=== PATIENT | male | born 1950 | race Caucasian/White ===

== ENCOUNTER 2020-04-24 12:25 | Outpatient (CLI) | payer MEDICARE, OTHER, SELFPAY ==
--- NOTE | ~2020-04-24 | CT_ITS ---
EXAMINATION: CTA chest PE protocol DATE: 04/24/2020 14:19 INDICATION: Chest pain on breathing. TECHNIQUE: Computed tomography angiography (CTA) of the chest was performed with 100 mL Omnipaque-350 intravenous contrast timed to evaluate the pulmonary arteries. Coronal maximum intensity projection 3D-reconstructions were created by the technologist. Automated exposure control and iterative reconst ruction technique were employed. The dose-length product was 489.64 mGy-cm. COMPARISON: None. FINDINGS: The lungs demonstrate mild atelectasis. There are airspace and groundglass opacities in bas ilar left lower lobe, consistent with infarct. There is a small left pleural effusion. The heart size is normal. No pericardial effusion. There are cysts in the liver measuring up to 9 mm. There are pul monary emboli in the lower lobes, right middle lobe, and left upper lobe including a saddle embolus i n distal left main pulmonary artery. There is mild thoracic spondylosis. IMPRESSION: 1. Bilateral acute pulmonary emboli. 2. Infarct in basilar left lung lower lobe. 3. Small left pleural effusion. Reviewed, dictated and finalized at location A.
--- NOTE | ~2020-04-24 | US_ITS ---
EXAMINATION:US venous doppler LE BI INDICATION:Chest pain TECHNIQUE: Multiple grayscale, color flow and Doppler images of the lower extremity deep venous syste ms were obtained and reviewed. COMPARISON:No prior studies for comparison. FINDINGS: There is deep venous thrombosis of the right femoral, popliteal, posterior tibial and peron eal veins. There is no evidence for deep venous thrombosis lower extremity veins. IMPRESSION: 1: Deep venous thrombosis of the right lower extremity. Reviewed, dictated and finalized at location A.
[2020-04-24 13:24] LABS: D Dimer 4.95 ug/mL (<0.48)
[2020-04-24 14:14] LABS: Estimated Glomerular Filt Rate 54
== END 2020-04-24 12:26 | disposition home or self-care (01) ==
PROVIDERS: PCP Internal Medicine; Visit Provider Internal Medicine
DX: R07.1 Chest pain on breathing (principal); I26.99 Other pulmonary embolism without acute cor pulmonale; J90 Pleural effusion, not elsewhere classified; I82.491 Acute embolism and thrombosis of other specified deep vein of right lower extremity
CPT/HCPCS: 36415; 71275; 85380; 93970; Q9967

== ENCOUNTER 2020-05-16 07:32 | Outpatient (CLI) | payer MEDICARE, OTHER, SELFPAY ==
--- NOTE | ~2020-05-16 | US_ITS ---
EXAMINATION: US venous doppler [facility] DATE: 05/16/2020 08:14 INDICATION: Acute right lower limb deep vein thrombosis. TECHNIQUE: Grayscale ultrasound images without and with compression and Doppler ultrasound images of the bilateral lower extremity veins were obtained. COMPARISON: Ultrasound 04/24/2020 FINDINGS: The visualized portions of right common femoral vein, profunda (deep) femoral vein, femoral vein, pop liteal vein, peroneal veins, posterior tibial veins, and greater saphenous vein outflow are patent. T here is thrombus in a right gastrocnemius vein. The visualized portions of left common femoral vein, profunda femoral vein, femoral vein, popliteal v ein, peroneal veins, posterior tibial veins, and greater saphenous vein outflow are patent. IMPRESSION: 1. Deep vein thrombosis involving a right gastrocnemius vein with interval improvement in distributi on. Reviewed, dictated and finalized at location A. IMPRESSION: 1. Deep vein thrombosis involving a right gastrocnemius vein with interval imp rovement in distribution.
--- NOTE | ~2020-05-16 | CT_ITS ---
EXAMINATION: CTA chest PE protocol DATE: 05/16/2020 09:56 INDICATION: History of pulmonary embolism and deep venous thrombosis TECHNIQUE: Computed tomography angiography (CTA) of the chest was performed with 100 mL Omnipaque-350 intravenous contrast timed to evaluate the pulmonary arteries. Coronal maximum intensity projection 3D-reconstructions were created by the technologist. The dose-length product (DLP) was 460.61 mGy-cm. Automated exposure control and iterative reconstruction technique were employed. COMPARISON: 04/24/2020 FINDINGS: The pulmonary arteries are well-opacified. There is near complete resolution of the previou sly identified pulmonary emboli. A tiny peripheral residual pulmonary embolism is seen in the left lo wer lobe, consistent with a resolving embolus. No new pulmonary emboli are identified. There is a sta ble 4 mm nodule in the right lower lobe. There is a 2.5 x 1.5 cm pleural-based nodule in the left low er lobe, new since the comparison examination and likely representing rounded atelectasis versus sequ julius of prior pulmonary infarct. There is no pleural effusion or pneumothorax. No pathologically enlar ged thoracic lymph nodes are identified. The heart size is normal. There is mild thoracic spondylosis . Liver cysts measure up to 9 mm. IMPRESSION: 1. Near complete resolution of previously described pulmonary emboli with a small persistent resolvin g embolus in the right lower lobe. 2. Pleural-based nodule of the left lower lobe, likely rounded atelectasis versus sequela of prior in farct. Reviewed, dictated and finalized at location A. IMPRESSION: 1. Near complete resolution of previously described pulmonary emboli with a sma ll persistent resolving embolus in the right lower lobe. 2. Pleural-based nodule of the left lower lobe, likely rounded atelectasis vers us sequela of prior infarct.
== END 2020-05-16 07:33 | disposition home or self-care (01) ==
PROVIDERS: PCP Internal Medicine; Visit Provider Internal Medicine
DX: R91.8 Other nonspecific abnormal finding of lung field (principal); I82.461 Acute embolism and thrombosis of right calf muscular vein
CPT/HCPCS: 71275; 93970; Q9967

== ENCOUNTER 2020-06-22 12:52 | Outpatient (CLI) | payer MEDICARE, OTHER, SELFPAY ==
--- NOTE | ~2020-06-22 | CT_ITS ---
EXAMINATION: CT abdomen pelvis wo con DATE: 06/22/2020 14:00 INDICATION: Abdominal pain TECHNIQUE: Computed tomography (CT) of the abdomen and pelvis was performed without intravenous contr ast. The dose-length product (DLP) was 756.21 mGy-cm. Automated exposure control and iterative recons truction technique were employed. COMPARISON: 05/16/2020 FINDINGS: A pleural-based nodule of the left lower lobe persists but is decreased in size, consistent with resolving atelectasis or pulmonary infarct. Hypoattenuating lesions of the liver measuring up t o 12 mm in the right hepatic lobe likely reflect cysts. The spleen, pancreas, gallbladder, and adrena l glands are normal. There is a 9.0 x 8.6 cm cystic lesion of the left kidney containing thin interna l septations and faint calcifications within a few of the septations, a Bosniak II lesion. A 5 mm hyp erdense lesion of the right kidney lower pole is too small to characterize but may reflect a hemorrha gic cyst. Colonic diverticulosis is present without evidence of diverticulitis. The appendix is reinier l. There is mild lumbar spondylosis. IMPRESSION: 1. No CT correlate for the patient's symptoms. Reviewed, dictated and finalized at location A.
--- NOTE | ~2020-06-22 | US_ITS ---
EXAMINATION: US venous doppler [facility] DATE: 06/22/2020 13:40 INDICATION: Right lower limb deep vein thrombosis. TECHNIQUE: Grayscale ultrasound images without and with compression and Doppler ultrasound images of the bilateral lower extremity veins were obtained. COMPARISON: Ultrasound 05/16/2020, 04/24/2020 FINDINGS: The visualized portions of right common femoral vein, profunda (deep) femoral vein, femoral vein, pos terior tibial veins, and greater saphenous vein outflow are patent. There is thrombus in right poplit eal and peroneal veins. The visualized portions of left common femoral vein, profunda femoral vein, femoral vein, popliteal v ein, peroneal veins, posterior tibial veins, and greater saphenous vein outflow are patent. IMPRESSION: 1. Deep vein thrombosis in right popliteal and peroneal veins. Reviewed, dictated and finalized at location A.
== END 2020-06-22 12:53 | disposition home or self-care (01) ==
PROVIDERS: PCP Internal Medicine; Visit Provider Internal Medicine
DX: I82.431 Acute embolism and thrombosis of right popliteal vein (principal); I82.451 Acute embolism and thrombosis of right peroneal vein
CPT/HCPCS: 74176; 93970

== ENCOUNTER 2020-09-04 08:02 | Outpatient (CLI) | payer MEDICARE, OTHER, SELFPAY ==
--- NOTE | ~2020-09-04 | US_ITS ---
EXAMINATION: US venous doppler LE RT EXAM DATE: 09/04/2020 08:36 INDICATION: Follow-up popliteal DVT. TECHNIQUE: Multiple grayscale, color flow and Doppler images of the right lower extremity deep venous system were obtained and reviewed. There is no prior study for comparison. FINDINGS: The right common femoral, femoral and profunda veins demonstrate normal color flow, respira tory variation, augmentation and compressibility. Compressibility, color flow confirmed within the r ight popliteal, posterior tibial, peroneal, and greater saphenous veins. Posterior tibial vein is pa ired, scarred or fenestrated, but compressible. IMPRESSION: 1. Resolution of previously seen right popliteal, peroneal DVT. Reviewed, dictated and finalized at location B.
== END 2020-09-04 08:03 | disposition home or self-care (01) ==
PROVIDERS: PCP Internal Medicine; Visit Provider Internal Medicine Hematology & Oncology
DX: I82.431 Acute embolism and thrombosis of right popliteal vein (principal)
CPT/HCPCS: 93971

== ENCOUNTER 2021-03-12 10:35 | Outpatient (CLI) | payer MEDICARE, SELFPAY ==
[2021-03-12 10:49] LABS: Basophils Percent Auto 0.5 % (0.2-1.2); Eosinophils Absolute Auto 0.2 K/mm3 (0-0.3); Eosinophils Percent Auto 2.7 % (0-4.4); Hematocrit 41.1 % (42.0-52.0); Immature Granulocyte Absolute 0.01 K/mm3 (0.00-0.031); Immature Granulocyte Percent A 0.1 % (0-0.5); Lymphocytes Absolute Auto 2.56 K/mm3 (0.9-3.2); Lymphocytes Percent Auto 31.8 % (18.3-44.2); Mean Corpuscular HGB Conc 34.1 g/dl (32-36); Mean Platelet Volume 8.4 fl (7.4-10.4); Monocytes Absolute Auto 0.6 K/mm3 (0.1-0.6); Monocytes Percent Auto 7.8 % (2.6-8.5); Neutrophils Absolute Auto 4.6 K/mm3 (1.3-6.7); Neutrophils Percent Auto 57.1 % (45.5-73.1); Platelet Count Result 196 k/mm3 (150-375); Red Blood Count 4.67 M/mm3 (4.6-6.20); Red Cell Distribution Width 12.6 % (11.5-14.5)
[2021-03-12 10:57] LABS: Blood Urea Nitrogen 20 mg/dL (8-26); Carbon Dioxide 27 mmol/L (22-30); Chloride 100 mmol/L (98-109); Estimated Glomerular Filt Rate 54; Glucose 166 mg/dL (70-105); Potassium 3.7 mmol/L (3.5-4.9); Sodium 139 mmol/L (138-146)
[2021-03-12 11:48] LABS: Alanine Aminotransferase 19 U/L (4-50); Albumin Level 4.3 g/dL (3.5-5.1); Alkaline Phosphatase 54 U/L (38-126); Anion Gap 7 mmol/L (8-16); Aspartate Amino Transferase 28 U/L (17-59); Bilirubin,Total 0.5 mg/dL (0.2-1.3); Blood Urea Nitrogen 22 mg/dL (9-20); Calcium 9.7 mg/dL (8.4-10.2); Carbon Dioxide 29 mmol/L (22-30); Chloride 102 mmol/L (98-107); Estimated Glomerular Filt Rate 60; Glucose 170 mg/dL (75-110); Potassium 3.9 mmol/L (3.4-5.0); Sodium 138 mmol/L (137-145)
== END 2021-03-12 10:36 | disposition home or self-care (01) ==
PROVIDERS: PCP Internal Medicine; Visit Provider Internal Medicine Hematology & Oncology
DX: I82.431 Acute embolism and thrombosis of right popliteal vein (principal)
CPT/HCPCS: 36415; 80048; 80053; 85025